=== PATIENT | female | born 1975 | race American Indian/Alaskan Native ===

== ENCOUNTER 2018-01-12 19:31 | Emergency (ER) | payer OTHER ==
[2018-01-12] MEDS ORDERED: ASPIRIN PO ONE (19:56)
[2018-01-12 20:11] LABS: Basophils # (Auto) 0.1 K/mm3 (0.0-0.1); Eosinophils # (Auto) 0.2 K/mm3 (0.0-0.4); Eosinophils % (Auto) 1.4 % (0.0-4.3); Hematocrit 36.1 % (30.3-42.9); Hemoglobin 11.5 gm/dl (10.1-14.3); Lymphocytes # (Auto) 2.6 K/mm3 (1.2-5.4); Lymphocytes % (Auto) 22.5 % (13.4-35.0); Mean Corpuscular HGB Conc 32 % (30-34); Mean Corpuscular Volume 81 fl (79-97); Monocytes # (Auto) 0.6 K/mm3 (0.0-0.8); Monocytes % (Auto) 4.8 % (0.0-7.3); Platelet Count 365 K/mm3 (140-440); Red Blood Count 4.46 M/mm3 (3.65-5.03); Red Cell Distribution Width 15.3 % (13.2-15.2)
[2018-01-12 20:23] LABS: BUN/Creatinine Ratio 13; Blood Urea Nitrogen 9 mg/dL (7-17); Hemolysis Index 6
[2018-01-12 20:27] LABS: Mean Corpuscular Hemoglobin 26 pg (28-32)
[2018-01-12 21:23] LABS: Bacteria,Urine 1+ /HPF (Negative); Bilirubin,Urine NEG (Negative); Blood,Urine NEG (Negative); Color,Urine Yellow (Yellow); Mucus,Urine 1+ /HPF
[2018-01-13] MEDS ORDERED: ASPIRIN ONE (00:07)
--- NOTE | 2018-01-13 00:22 | Emergency Department Report ---
HPI - General Chief Complaint: Chest Pain Time Seen by Provider: 01/12/18 23:01 - HPI HPI: 42-year-old -[place] female, presented to ED with chest discomfort, right and left. Started earlier today about 6 hours ago. Pain is dull, 3 out of 10, without nausea or vomiting. No shortness of breath, no diaphoresis. Patient is now pain-free. ED Past Medical Hx - Past Medical History Previous Medical History?: No Hx Hypertension: No - Surgical History Past Surgical History?: Yes Additional Surgical History: ortho. "neck surgery from swallowing fish bone" - Social History Smoking Status: Never Smoker Substance Use Type: None - Medications Home Medications: Home Medications Medication Instructions Recorded Confirmed Last Taken Type HYDROcodone/APAP 5-325 [[place] 1 each PO Q6HR PRN #20 tablet 04/07/14 Unknown Rx 5-325 mg TAB] HYDROcodone/APAP 7.5-325 [[place] 1 each PO Q6HR PRN #25 tablet 05/05/14 Unknown Rx 7.5/325 mg] Ibuprofen [Motrin] 600 mg PO Q8H PRN #50 tablet 05/05/14 Unknown Rx Promethazine [Phenergan] 25 mg PO Q6H PRN #20 tablet 05/05/14 Unknown Rx traMADol [Ultram] 50 mg PO Q6HR PRN #7 tablet 01/13/18 Unknown Rx ED Review of Systems ROS: Stated complaint: CP Other details as noted in HPI Comment: All other systems reviewed and negative Cardiovascular: chest pain Gastrointestinal: denies: abdominal pain, nausea, vomiting Physical Exam - Physical Exam Vital Signs: Vital Signs 01/12/18 01/12/18 19:52 23:56 Temperature 98.6 F Pulse Rate 84 Respiratory 20 16 Rate Blood Pressure 118/55 O2 Sat by Pulse 98 97 Oximetry Physical Exam: - Physical Exam Physical Exam: - General Limitations: No Limitations General appearance: alert, in no apparent distress, obese - Head Head exam: Present: atraumatic, normocephalic - Eye Eye exam: Present: normal appearance - ENT ENT exam: Present: mucous membranes moist - Neck Neck exam: Present: normal inspection - Respiratory Respiratory exam: Present: normal lung sounds bilaterally. Absent: respiratory distress - Cardiovascular Cardiovascular Exam: Present: normal rhythm, tachycardia. Absent: systolic murmur, diastolic murmur, rubs, gallop - GI/Abdominal GI/Abdominal exam: Present: soft, normal bowel sounds - Extremities Exam Extremities exam: Present: normal inspection - Back Exam Back exam: Present: normal inspection - Neurological Exam Neurological exam: Present: alert, oriented X3 - Psychiatric Psychiatric exam: normal affect and mood - Skin Skin exam: Present: warm, dry, intact, normal color. Absent: rash ED Course Vital Signs 01/12/18 01/12/18 19:52 23:56 Temperature 98.6 F Pulse Rate 84 Respiratory 20 16 Rate Blood Pressure 118/55 O2 Sat by Pulse 98 97 Oximetry - Reevaluation(s) Reevaluation #1: 01/13/18 01:03 Patient is pain-free and stated that she wants to go home. Advised to follow up with PCP name. Short course of Ultram given the pain comes back. 01/13/18 01:03 ED Medical Decision Making - Lab Data Result diagrams: 01/12/18 20:01 01/12/18 20:01 Critical care attestation.: If time is entered above; I have spent that time in minutes in the direct care of this critically ill patient, excluding procedure time. ED Disposition Clinical Impression: Chest pain Qualifiers: Chest pain type: other chest pain Qualified Code(s): R07.89 - Other chest pain Disposition: DC-01 TO HOME OR SELFCARE Is pt being admited?: No Does the pt Need Aspirin: No Condition: Stable Instructions: Chest Pain (ED) Prescriptions: traMADol [Ultram] 50 mg PO Q6HR PRN #7 tablet PRN Reason: Pain Referrals: ALYCE BAUTISTA MD [Primary Care Provider] - 3-5 Days GUALBERTO CANALES MD [Staff Physician] - 3-5 Days
--- NOTE | 2018-01-13 00:34 | XRay Report ---
FINAL REPORT EXAM: XR CHEST 1V AP HISTORY: Chest pain TECHNIQUE: Single AP portable radiograph of the chest was obtained. PRIORS: None. FINDINGS: There are no focal consolidations to suggest pneumonia. No large pleural effusion. No pneumothorax. Cardiac silhouette and mediastinal structures are unremarkable. No acute osseous abnormality identified. Mild thoracic spine degenerative changes. IMPRESSION: No radiographic evidence of acute cardiopulmonary disease.
[2018-01-13 01:52] VITALS: BP 113/46
== END 2018-01-13 02:07 | disposition home or self-care (01) ==
LOC: ED 19:31
DX: R07.89 Other chest pain (principal)
CPT/HCPCS: 36415; 71045; 80048; 81001; 84484; 85025; 93005; 93010; 99284